=== PATIENT | female | born 1950 | race African-American/Black ===

== ENCOUNTER 2017-08-13 12:08 | Emergency (ER) | payer MEDICARE, OTHER ==
[~2017-08-13] VITALS: Ht 167.6 cm; Wt 93.0 kg
[2017-08-13 13:19] VITALS: BP 137/73
== END 2017-08-13 20:45 | disposition left against medical advice (07) ==
LOC: ER 12:08
DX: R21 Rash and other nonspecific skin eruption (principal)
CPT/HCPCS: 99281

== ENCOUNTER 2021-10-23 18:09 | Emergency (ER) | payer MEDICARE, OTHER ==
[~2021-10-23] VITALS: Ht 167.6 cm; Wt 76.0 kg
[2021-10-23 18:38] VITALS: BP 141/65
[2021-10-24] MEDS ORDERED: TETANUS, DIPHTHERIA, PERTUSSIS VAC/PF 0.5ML (>10YR OLD) IM ONE (01:15)
[2021-10-24] MEDS ORDERED: TETANUS AND DIPHTHERIA TOX/PF 0.5ML SYR (ADULT) IM ONE (01:15)
== END 2021-10-24 01:27 | disposition home or self-care (01) ==
LOC: ER 18:09
DX: S61.412A Laceration without foreign body of left hand, initial encounter (principal); W26.0XXA Contact with knife, initial encounter; Y93.89 Activity, other specified; Y92.89 Other specified places as the place of occurrence of the external cause
CPT/HCPCS: 90471; 90714; 90715; 99283